=== PATIENT | male | born 1965 | race Caucasian/White ===

== ENCOUNTER 2018-02-02 07:06 | Day surgery (SDC) | payer OTHER ==
[~2018-02-02] VITALS: Ht 180.3 cm; Wt 86.8 kg
[2018-02-02] MEDS: LACTATED RINGERS 1,000 ML IV SCH (08:04)
[2018-02-02 08:07] VITALS: BP 145/92
[2018-02-02] MEDS ORDERED: MIDAZOLAM 1 MG/ML, 2ML ONE (08:37)
[2018-02-02] MEDS ORDERED: FENTANYL PF 250 MCG/5ML ONE (08:39)
[2018-02-02] MEDS ORDERED: EPINEPHRINE 1 MG/ML, 1ML ONE (08:40)
[2018-02-02] MEDS ORDERED: BUPIVACAINE/PF 0.25% ONE (08:40)
[2018-02-02] MEDS: ACETAMINOPHEN 500 MG TABLET PO ONE (08:45)
[2018-02-02] MEDS: SCOPOLAMINE PATCH, 1.5MG PATCH.TD72 TD ONE (08:45)
[2018-02-02] MEDS: OxyconTIN ER 10 MG TAB.ER PO ONE (08:45)
[2018-02-02] MEDS: ONDANSETRON ODT 8 MG PO ONE (08:46)
[2018-02-02] MEDS ORDERED: SUCCINYLCHOLINE 20 MG/ML, 10ML ONE (09:10)
[2018-02-02] MEDS ORDERED: ROCURONIUM 10MG/ML,5ML ONE (09:11)
[2018-02-02] MEDS ORDERED: DEXAMETHASONE 4 MG/ML, 1ML ONE ×2 (09:11)
[2018-02-02] MEDS ORDERED: LIDOCAINE GEL 2%, 5ML ONE (09:11)
[2018-02-02] MEDS ORDERED: PROPOFOL 10 MG/ML, 20ML ONE ×3 (09:11→10:13)
[2018-02-02] MEDS ORDERED: CEFAZOLIN 1,000 MG ONE ×2 (09:11)
[2018-02-02] MEDS: BUPIVACAINE/PF 0.25% INFIL ONE (09:26)
[2018-02-02] MEDS ORDERED: MEPERIDINE/PF 100 MG/ML ONE (09:27)
[2018-02-02] MEDS: EPINEPHRINE 1 MG/ML, 1ML INFIL ONE (09:27)
[2018-02-02] MEDS ORDERED: MEPERIDINE/PF 25MG/0.5ML IVPush PRN (09:30)
[2018-02-02] MEDS ORDERED: PROMETHAZINE 12.5 MG SUPP PR PRN (09:30)
[2018-02-02] MEDS ORDERED: FENTANYL PF 100 MCG/2ML IV PRN (09:30)
[2018-02-02] MEDS ORDERED: LABETALOL 5MG/ML, 20ML IV PRN (09:30)
[2018-02-02] MEDS ORDERED: hydrALAzine 20 MG/ML, 1ML IV PRN (09:30)
[2018-02-02] MEDS ORDERED: PROMETHAZINE 25 MG/ML, 1ML IV PRN (09:30)
[2018-02-02] MEDS ORDERED: MIDAZOLAM 1 MG/ML, 2ML IV PRN (09:30)
[2018-02-02] MEDS ORDERED: OXYcodone 5 MG/5 ML ORAL.SOL UDC PO PRN (09:30)
[2018-02-02] MEDS ORDERED: ONDANSETRON ODT 8 MG PO PRN (09:30)
[2018-02-02] MEDS ORDERED: ALBUTEROL SULFATE 2.5 MG/3 ML NPPB PRN (09:30)
[2018-02-02] MEDS ORDERED: MORPHINE SULFATE 4 MG/ML, 1ML IVPush PRN (09:30)
[2018-02-02] MEDS ORDERED: FENTANYL PF 100 MCG/2ML ONE (10:09)
[2018-02-02] MEDS ORDERED: NALOXONE 0.4 MG/ML, 1ML ONE (10:40)
[2018-02-02] MEDS ORDERED: GLYCOPYRROLATE 0.2MG/1ML, 5ML ONE (16:04)
[2018-02-02] MEDS ORDERED: KETOROLAC 30 MG/1 ML ONE (16:04)
[2018-02-02] MEDS ORDERED: NEOSTIGMINE 1 MG/ML, 10ML ONE (16:04)
== END 2018-02-02 14:25 ==
LOC: OUT 07:06
PROVIDERS: ATTEND Surgery
DX: K40.90 Unilateral inguinal hernia, without obstruction or gangrene, not specified as recurrent (principal)
CPT/HCPCS: 49650; C1727; C1781; J0171; J0330; J0690; J1100; J1885; J2175; J2250; J2310; J2704; J2710; J3010; J3490; J7120; Q0162

== ENCOUNTER 2019-11-26 15:03 | Outpatient (CLI) | payer OTHER | END 2019-11-26 23:59 | disposition home or self-care (01) | LOC: RAD 15:03 | PROVIDERS: ATTEND Emergency Medicine | DX: N50.3 Cyst of epididymis (principal); N43.3 Hydrocele, unspecified; I86.1 Scrotal varices | CPT/HCPCS: 76870 ==